=== PATIENT | male | born 1955 | race African-American/Black ===

== ENCOUNTER 2017-04-15 15:12 | Inpatient (IN) ==
[2017-04-15 15:29] LABS: MANUAL DIFF NEEDED? NO
[2017-04-15 15:34] LABS: BASO% 0.2 % (0.0-0.8); EOS# 0.11 X1000 (0.0-0.7); EOS% 1.3 % (0.0-10.0); HEMATOCRIT 41.8 % (42.0-52.0); HEMOGLOBIN 13.8 g/dL (14.0-18.0); LYMPH# 2.38 X1000 (1.2-3.4); MCH 28.9 PG (27-31); MCV 87.6 FL (81-99); MONO# 0.55 X1000 (0.11-0.59); MONO% 6.7 % (1.7-9.3); MPV 9.6 FL (7.4-10.4); NEUT% 62.8 % (42.2-75.2); PLT 258 X1000 (130-400); RBC 4.77 XMIL (4.7-6.1)
[2017-04-15 15:53] LABS: AGAP 10; ALBUMIN 3.6 g/dL (3.5-5.0); ALKALINE PHOSPHATASE 90 U/L (32-122); BUN 17 mg/dL (8-22); CALCIUM 8.8 mg/dL (8.8-10.2); CHLORIDE 106 mmol/L (98-107); COSMO 290; GOT 30 U/L (10-34); GPT 27 U/L (10-44); POTASSIUM 4.3 mmol/L (3.5-5.1); SODIUM 145 mmol/L (136-145); TCO2 29 mmol/L (25-35); TOTAL BILIRUBIN 0.17 mg/dL (0.20-1.00); TOTAL PROTEIN 7.1 g/dL (6.3-8.3)
[2017-04-15 16:20] LABS: INR 1.03; PROTIME 10.8 Seconds (9.2-11.7); PTT 27.5 Seconds (22.0-36.0)
--- NOTE | 2017-04-15 18:23 | PROVIDER DOCUMENTATION ---
HPI-General Adult - General Chief Complaint: Edema Stated Complaint: RT FOOT SWOLLEN,DIABETIC Time Seen by Provider: 04/15/17 18:16 Source: patient Allergies/Adverse Reactions: Patient Allergies Allergy/AdvReac Type Severity Reaction Status Date / Time lisinopril Allergy Severe ANAPHYLAXIS Verified 04/15/17 20:33 Home Medications: Home Medication List Medication Instructions Recorded Confirmed Last Taken Type Aspirin 81 mg PO DAILY 10/12/15 04/15/17 04/14/17 History Brinzolamide/Brimonidine Tart 1 drop OP TID 10/12/15 10/12/15 10/11/15 History [Simbrinza 1%-0.2% Eye Drops] Amlodipine [Norvasc] 10 mg PO DAILY #90 tablet 10/17/15 04/15/17 04/14/17 Rx - History of Present Illness -Gen Adult Nature of Presenting Problems: 61 y/o BM presents to the ED with c/o RLE swelling x 6 days, tooth infection x 2 years, out of BP medication x 7 days. States leg pain is through entire RLE, starting in foot/ankle and now is affecting entire RLE. States sometimes intermittent swelling sometimes, but usually will go down. Denies hx of CHF, but has had hx of HI x 4-5 years ago with one stent in place- was seeing Dr. Lewis, but has not seen her in 3 years. Pt states hx of DM2, but does not take medications for it at this time. States tooth infection in L upper jaw with intermittent drainage; reports Abx will keep it at bay for 6 months at a time, but is back today and actively draining. Out of norvasc; needs a refill. Review of Systems - Adult - REVIEW OF SYSTEMS - ADULT Constitutional: reports: no symptoms reported. denies: chills, fever Eyes: reports: no symptoms reported. denies: blurred vision, double vision Ears, Nose, Mouth & Throat: reports: see HPI, mouth/dental pain. denies: ear pain, nose pain Cardiovascular: reports: no symptoms reported. denies: chest pain, palpitations Respiratory: reports: no symptoms reported. denies: cough, shortness of breath Gastrointestinal: reports: no symptoms reported. denies: nausea, vomiting Genitourinary: reports: no symptoms reported. denies: dysuria, frequency Musculoskeletal: reports: see HPI, other. denies: joint pain, joint swelling Integumentary: reports: no symptoms reported, rash. denies: nail changes Neurological: reports: no symptoms reported. denies: numbness, paresthesia Psychiatric: reports: no symptoms reported Endocrine: reports: no symptoms reported. denies: cold intolerance, heat intolerance Hematologic/Lymphatic: reports: see HPI, blood clots. denies: easy bruising, prolonged bleeding Allergic/Immunologic: reports: no symptoms reported All Other Systems: Reviewed and Negative Past History - Adult - PAST MEDICAL HISTORY-ADULT Review of Records: reports: Nursing Assessment Review, Medications Reviewed Cardiovascular: reports: CAD, HTN, hyperlipidemia, HI Endocrine/Immune: reports: Diabetes, thyroid disorder - PRIOR SURGERIES/PROCEDURES Surgical/Procedure History: reports: cardiac stent (2012), hernia repair, orthopedic (extremity) - SOCIAL HISTORY Smoking: cigarettes, less than 1 pack/day Provider spent 3-5 mins advising pt. on dangers of tobacco.: Discussed manners to quit use, and f/u contacts for add'l counseling. Alcohol Use Frequency: twice a week Number of drinks per typical drinking period:: 3-4 drinks Physical Exam-General - PHYSICAL EXAM-ADULT Initial Vital Signs Reviewed: Yes - CONSTITUTIONAL General Appearance: alert, mild distress, obese - EYES Eyes: pink conjunctivae - HEAD, EARS, NOSE, MOUTH & THROAT HENMT: normocephalic/atraumatic, dental decay (L upper jaw redness, no active drainage.) - NECK Neck: supple, normal inspection - RESPIRATORY Respiratory: lungs clear, normal breath sounds, no pleuratic chest pain. negative: crackles, rales, rhonchi, stridor, wheezing - CARDIOVASCULAR Cardiovascular: regular rate, rhythm. negative: bradycardia, tachycardia - MUSCULOSKELETAL Back Exam: normal inspection Extremity: normal gait, calf tenderness (RLE), pedal edema (RLE), swelling (RLE) , tenderness (RLE). negative: no pedal edema, no calf tenderness, abnormal NV exam, pulse deficit Peripheral Pulses: dorsalis-pedis (R): 1+ - SKIN Integumentary: normal color, normal turgor, erythema (RLE) - NEUROLOGIC Neurologic: negative: aphasia - PSYCHIATRIC Psych/Mental Status: normal mood/affect Progress - PLAN OF CARE/RESULTS Progress/Plan/Lab Results: Vital Signs - 8 hr 04/15/17 15:14 04/15/17 18:15 Temperature 99.0 F 98.0 F Pulse Rate 83 64 Respiratory Rate 18 18 Blood Pressure 156/82 157/90 O2 Sat by Pulse Oximetry 100 100 Laboratory Results - last 24 hr 04/15/17 04/15/17 04/15/17 15:19 15:19 15:19 WBC 8.21 RBC 4.77 Hgb 13.8 L Hct 41.8 L MCV 87.6 MCH 28.9 MCHC 33.0 RDW Std Deviation 15.0 H Plt Count 258 MPV 9.6 Immature Gran % (Auto) 0.0 Neut % (Auto) 62.8 Lymph % (Auto) 29.0 [place] % (Auto) 6.7 Eos % (Auto) 1.3 Baso % (Auto) 0.2 Immature Gran # (Auto) 0.00 Neut # (Auto) 5.15 Lymph # (Auto) 2.38 [place] # (Auto) 0.55 Eos # (Auto) 0.11 Baso # (Auto) 0.02 PT INR PTT (Actin FS) D-Dimer 16.24 H Sodium 145 Potassium 4.3 Chloride 106 Carbon Dioxide 29 Anion Gap 10 BUN 17 Creatinine 1.1 Estimated GFR/1.73 m2 > 60 BUN/Creatinine Ratio 15 Glucose 93 Calculated Osmolality 290 Calcium 8.8 Total Bilirubin 0.17 L AST 30 ALT 27 Alkaline Phosphatase 90 Total Protein 7.1 Albumin 3.6 Globulin 3.5 Albumin/Globulin Ratio 1.0 04/15/17 15:19 WBC RBC Hgb Hct MCV MCH MCHC RDW Std Deviation Plt Count MPV Immature Gran % (Auto) Neut % (Auto) Lymph % (Auto) [place] % (Auto) Eos % (Auto) Baso % (Auto) Immature Gran # (Auto) Neut # (Auto) Lymph # (Auto) [place] # (Auto) Eos # (Auto) Baso # (Auto) PT 10.8 INR 1.03 PTT (Actin FS) 27.5 D-Dimer Sodium Potassium Chloride Carbon Dioxide Anion Gap BUN Creatinine Estimated GFR/1.73 m2 BUN/Creatinine Ratio Glucose Calculated Osmolality Calcium Total Bilirubin AST ALT Alkaline Phosphatase Total Protein Albumin Globulin Albumin/Globulin Ratio Orders Category Date Time Status CBC WITH DIFF [HEME] Stat Lab 04/15/17 15:19 Completed COMPREHENSIVE METABOLIC PANEL [CHEM] Stat Lab 04/15/17 15:19 Completed D-DIMER [CHEM] Stat Lab 04/15/17 15:19 Completed PROTIME WITH INR [COAG] Stat Lab 04/15/17 15:19 Completed PTT [COAG] Stat Lab 04/15/17 15:19 Completed Venous U/S Right Leg Stat Ther 04/15/17 17:32 Ordered Discussed pt with Dr. Young; he agreed with admission. Result Diagrams: 04/15/17 15:19 04/15/17 15:19 - CT/MRI 1 CT Study: Angiogram (pulmonary) Impression: See EMR Report (1. Right upper lobe pulmonary embolus. 2. Peripheral wedge-shaped nodular density measuring up to 12 mm inferiorly in the right upper lobe. 3. There is evidence of a prior granulomatous infection. 4. A preliminary report was given to Dr. Young in the emergency room at 8:00 pm. -per Dr. Liang) - ULTRASOUND (By Radiology) 1 US Study: Lower Ext (R) Impression: Discussed w/Radiology (Extensive R occlusive DVT in CFV, FV, Popliteal, peroneal, PTV, soleoal, and gastroc involvement, per US remediation technician) - CONSULTS/PCP/HOSPITALIST Notification #1 *Consult/PCP/Hospitalist*: Dr. Garcia Time Discussed: 19:17 Reason/Comments: extensive RLE DVT, elevated Ddimer Consult Disposition: Admit (get CT angiogram) Departure - Departure Date of Disposition Decision: 04/15/17 Time of Disposition Decision: 19:15 DIAGNOSIS: DVT (deep venous thrombosis) Qualifiers: DVT location: lower extremity Affected thrombotic vein of extremity: other lower extremity vein Chronicity: acute Laterality: right Qualified Code(s): I82.491 - Acute embolism and thrombosis of other specified deep vein of right lower extremity Diabetes Qualifiers: Diabetes mellitus type: type 2 Diabetes mellitus complication status: with unspecified complications Diabetes mellitus skilled nursing insulin use: unspecified skilled nursing insulin use status Qualified Code(s): E11.8 - Type 2 diabetes mellitus with unspecified complications Hypertension Qualifiers: Hypertension type: essential hypertension Qualified Code(s): I10 - Essential ( primary) hypertension Disposition: ADMITTED INPATIENT 09 Certified Medical Emergency: Emergent Condition: Stable - Critical Care Note This patient required my direct & personal management of CC.: No Attestation - Physician/ JUSTIN Attestation Patient care was provided by Advanced Practice Provider:: Yes Advanced Practice Provider:: Aria Felix Advanced Practice Provider documentation review:: The Mid-level provider documentation, treatment plan and medical decision making was reviewed by the physician who agrees with all treatment and medical decision making by the MLP.
[2017-04-15] MEDS ORDERED: LOVENOX 1 MG/KG SUBQ ONE (19:13)
--- NOTE | 2017-04-15 20:02 | Diag Imaging Result Doc PS360 ---
EXAM: ANGIOGRAM/PULMONARY ARTERIES HISTORY: elevated Ddimer, DVT in RLE TECHNIQUE: Dose reduction protocol COMPARISON: 10/12/2015 FINDINGS: There is a filling defect within the posterior branch of the right upper lobe pulmonary artery. No thoracic aortic aneurysm or dissection. No cardiomegaly. No enlarged mediastinal or hilar lymph nodes. No pleural effusions. Small calcified left hilar lymph nodes with a calcified granuloma in the left lower lobe. Small peripheral nodular triangular-shaped density inferiorly in the right upper lobe. No other parenchymal abnormality. No bronchiectasis. IMPRESSION: 1.Right upper lobe pulmonary embolus 2.Peripheral wedge-shaped nodular density measuring up to 12 mm inferiorly in the right upper lobe 3.There is evidence of a prior granulomatous infection 4.A preliminary report was given to Dr. Young in the emergency room at 8:00 PM Electronically signed by Shine Liang 04/15/2017 7:59 PM
[2017-04-15] MEDS ORDERED: ZOFRAN IV PRN (21:05)
[2017-04-15] MEDS: TYLENOL PO PRN (23:01)
[2017-04-15] MEDS: LOVENOX SUBQ SCH (23:01)
--- NOTE | 2017-04-16 05:32 | HISTORY AND PHYSICAL ---
PRIMARY CARE PHYSICIAN: None. CHIEF COMPLAINT: Right lower extremity swelling x6 weeks or so. HISTORY OF PRESENTING ILLNESS: This is a 61-year-old male with a history of pulmonary embolism, diabetes mellitus type 2, previous right DVT, and hypertension who had presented to the emergency department with a 6 week history of right lower extremity swelling and pain. The patient apparently had been on anticoagulation with Coumadin in the past. However, he lost his primary care physician and subsequently he has not taken medicines for quite a long while. He was evaluated the ER. He had an ultrasound done which was consistent with an extensive right lower extremity DVT. Also, he had a CAT scan done which did show a pulmonary embolism. Due to these presenting symptoms and findings, he will need hospitalization for further management. At the time of my examination, he had denied any headache, visual changes, fevers, chills, chest pain, shortness of breath, hemoptysis, or weight changes but complained of right lower extremity pain. PAST MEDICAL HISTORY: Includes pulmonary embolism, diabetes mellitus type 2, right DVT, hypothyroidism, hypertension, NE, coronary artery disease, left eye blindness. PAST SURGICAL HISTORY: Coronary stent, hernia repair, left foot surgery. ALLERGIES: Lisinopril. CURRENT MEDICATIONS: As listed in the MAR. SOCIAL HISTORY: A 40 pack year history of smoking. Admits to social alcohol use. Denies any illicit drug use. FAMILY HISTORY: No history of coronary artery disease. REVIEW OF SYSTEMS: Twelve point review of systems listed as in the HPI. Other systems negative. PHYSICAL EXAMINATION: GENERAL: Cooperative, friendly male. He is resting comfortably now. VITAL SIGNS: Temperature 99 degrees, pulse 83, respirations 18, blood pressure 156/82, saturating 100% on room air. HEENT: Atraumatic, normocephalic. Extraocular movements intact. PERRLA. NECK: Supple. CHEST: Clear to auscultation. CARDIOVASCULAR: Regular rate and rhythm. ABDOMEN: Soft. Positive bowel sounds. EXTREMITIES: Right lower extremity edema. NEUROLOGIC: He is awake, alert, oriented x3. : No bladder distention. SKIN: Warm and good turgor. LABORATORIES AND STUDIES: WBCs 8.21, hemoglobin 13.8, hematocrit 41.8, platelets 258,000. Sodium 143, potassium 4.3, chloride 106, CO2 is 29, BUN is 17, creatinine is 1.1, glucose is 93. D-dimer was 16.24. ASSESSMENT: A 61-year-old male with a previous history of pulmonary embolism and a right lower extremity deep venous thrombosis, hypertension, and diabetes mellitus type 2 who had presented to the emergency department with a 6 week history of worsening right lower extremity swelling and pain. He was evaluated in the emergency room, and he had an ultrasound done which was consistent with extensive deep venous thrombosis of the right lower extremity. Also, he had a CAT scan done which did show pulmonary embolism. Due to these findings, he will need hospitalization for further management. 1. Acute right lower extremity deep venous thrombosis. 2. Acute pulmonary embolism. 3. Diabetes mellitus type 2. 4. Hypertension. PLAN: 1. We will admit patient to medical floor with telemetry. The patient is not hypoxic and does not complain of any respiratory problems. It will be appropriate for patient to go to the medical floor. 2. We will start patient on Lovenox 1 mg/kg subcutaneous q.12 hours. 3. Patient will be discussed options regarding if he wants to go on Xarelto versus continue on Coumadin. 4. We will monitor blood glucose and put patient on sliding scale insulin regimen. 5. We will monitor blood pressure and resume antihypertensive agent. 6. Patient is going to be on heparin so he has appropriate coverage for prophylaxis and also for treatment. 7. We will continue to follow and reassess. cc: Femi Garcia MD
[2017-04-16 05:40] LABS: MANUAL DIFF NEEDED? NO
[2017-04-16 06:10] LABS: BASO% 0.3 % (0.0-0.8); EOS# 0.19 X1000 (0.0-0.7); EOS% 2.1 % (0.0-10.0); HEMATOCRIT 38.9 % (42.0-52.0); HEMOGLOBIN 12.9 g/dL (14.0-18.0); IMM GRAN# 0.02 X1000 (0.0-0.04); IMM GRAN% 0.2 % (0.0-0.5); LYMPH# 3.17 X1000 (1.2-3.4); LYMPH% 35.8 % (20.5-51.1); MCH 29.3 PG (27-31); MCHC 33.2 g/dL (33-37); MCV 88.2 FL (81-99); MONO# 0.69 X1000 (0.11-0.59); MONO% 7.8 % (1.7-9.3); NEUT% 53.8 % (42.2-75.2); PLT 230 X1000 (130-400); RBC 4.41 XMIL (4.7-6.1)
[2017-04-16 06:13] LABS: AGAP 10; BUN 17 mg/dL (8-22); CALCIUM 8.3 mg/dL (8.8-10.2); CHLORIDE 106 mmol/L (98-107); COSMO 294; SODIUM 146 mmol/L (136-145); TCO2 30 mmol/L (25-35)
[2017-04-16] MEDS: TYLENOL PO PRN ×2 (06:43→22:13)
[2017-04-16] MEDS: HUMULIN R SUBQ SCH ×4 (06:44→22:13)
[2017-04-16] MEDS: ASPIRIN PO SCH (10:05)
[2017-04-16] MEDS: LOVENOX SUBQ SCH ×2 (10:05→22:13)
[2017-04-16] MEDS: NORVASC PO SCH (10:05)
--- NOTE | 2017-04-16 11:58 | Extremity Venous Study ---
PROCEDURE NAME: Venous U/S Right Leg - 04/15/2017 REQUESTING PHYSICIAN: Dr. Ackerman in the Emergency Department. SHEET METAL LAYOUT WORKER: Maritza. INDICATION: Edema in the right lower extremity with elevated D-dimer. PROCEDURE: Right lower extremity venous duplex and color flow imaging. EQUIPMENT: [employer] E9 ultrasound system with a 9 LD transducer. FINDINGS: images of the right lower extremity venous system with comparison shot of the left common femoral vein were obtained in both sagittal and transverse planes. Doppler was used to evaluate veins for spontaneity, phasicity, respiratory excursion, and digital augmentation. RESULTS: Extensive DVT noted on the right side, extending from the common femoral vein, the femoral vein, the popliteal vein, the gastrocnemius vein, the soleal vein, the posterior tibial vein, and the peroneal vein. There is also a superficial venous thrombosis noted in the greater saphenous vein on the right side. INTERPRETATION: Extensive deep vein thrombosis on the right side, as noted above. There is also a superficial venous thrombosis of the greater saphenous vein. This was reported to Dr. Young in the Emergency Department at 7 p.m., per the photographic technician's note. cc: Fantasma Floyd MD
[2017-04-16] MEDS: PATIENT'S OWN MED OPH SCH ×2 (11:59→18:45)
--- NOTE | 2017-04-16 16:00 | PROGRESS NOTE ---
DATE: 04/16/2017 SUBJECTIVE: Patient admitted yesterday evening on the . A 61-year-old presented with right lower extremity swelling for 6 weeks or so. Has a history of pulmonary embolism, diabetes mellitus type 2, previous right DVT, hypertension, presented to the emergency department. 6-week history of right lower extremity swelling and pain. The patient apparently has been on anticoagulation with Coumadin in the past; however, he lost his primary care physician. Subsequently, he has not taken medications for quite a long while. He was evaluated in the emergency room. Ultrasound was consistent with extensive right lower extremity DVT. Also had CAT scan, CT angiogram which showed pulmonary embolism. Due to these presenting symptoms and findings, he was put in the hospital. He says he feels better today, can tell his right leg is less swollen. No pleuritic discomfort. OBJECTIVE: Vital signs: Temperature 98.7 degrees, pulse 66, respirations 20, blood pressure 157/96. CVP was less than 6 cm. Lungs: Clear. I do not hear any pleural rubs, anterior, posterior or laterally. Abdomen: Soft. Skin: Warm and dry. Extremities: Right ankle and foot with trace edema and slightly larger diameter than the left. : Urine output was above 1400 mL. LABORATORY: Today white count 8860, hematocrit 38, platelet count 230,000. Sodium 146, potassium 4, chloride 106, BUN 17, creatinine 1.1. ASSESSMENT AND PLAN: 1. Right lower extremity deep venous thrombosis. Right upper lobe pulmonary embolus. Peripheral wedge-shaped nodular density measuring about 12 mm inferior in the right upper lobe. No pleuritic pain. Breathing comfortably. Hemodynamically stable. No sign of heart right heart strain. He is currently anticoagulated and we will need to convert him to a p.o. anticoagulant and suspect that we could go back on the Coumadin, but he needs to have follow up with that. He is right now on Lovenox 140 mg subcutaneous q.12 hours. We will see if he is eligible for Xarelto. Otherwise, we will go ahead and start him on Coumadin to get that therapeutic. I would like his international normalized ratio to be 2 or above. 2. Diabetes mellitus type 2. Follow sugars. Appear to be well controlled. 118, 110 were his last 2 numbers. 3. Hypertension. 4. Obesity. 5. He has history of coronary artery disease. He has had coronary stent before. 6. He has left eye blindness. 7. History of myocardial infarction. 8. He has history of primary hypothyroidism. Appears to be euthyroid. I do think it would be worthwhile to check his cholesterol and check his T4 and TSH as well as a B12 and folate while he is here. cc: Sridhar Ballesteros MD
[2017-04-16] MEDS: COUMADIN PO SCH (22:13)
[2017-04-17] MEDS: HUMULIN R SUBQ SCH ×4 (06:00→21:00)
[2017-04-17] MEDS: TYLENOL PO PRN ×3 (06:08→22:04)
[2017-04-17 07:43] LABS: FREE T4 0.84 ng/dL (0.93-1.70)
[2017-04-17] MEDS ORDERED: PNEUMOVAX 23 IM ONE (09:00)
[2017-04-17] MEDS: ASPIRIN PO SCH (09:04)
[2017-04-17] MEDS: LOVENOX SUBQ SCH ×2 (09:04→21:57)
[2017-04-17] MEDS: NICODERM PATCH TD SCH (09:04)
[2017-04-17] MEDS: NORVASC PO SCH (09:04)
--- NOTE | 2017-04-17 12:28 | PROGRESS NOTE ---
DATE: 04/17/2017 SUBJECTIVE: He is breathing comfortably. Feels good. His leg feels like it is less swollen. Had a good night. Bowels are moving. He is eating well. OBJECTIVE: Vital Signs: Temperature 98.6 degrees, pulse 65, respirations 20, blood pressure 134/86. Lungs: Clear in all lung vann. Cardiovascular: Regular rhythm and rate without murmur or S3. Urine output was 3 L. LAB: Reviewed from yesterday, hematocrit stable at 38. Blood sugars 118, 110, 105. His prothrombin time was 10.8. D-dimer was 16.24 on the . ASSESSMENT AND PLAN: 1. Deep venous thrombosis and pulmonary thromboemboli. He is on Lovenox. He has right upper lobe pulmonary embolus. We will start him on Coumadin. He needs to find primary care, hoping to let him go home on Saturday when prothrombin time is therapeutic. 2. Diabetes mellitus type 2. Sugars well controlled. 3. Hypertension. 4. Obesity. 5. History of coronary artery disease. 6. Left eye blindness. 7. History of myocardial infarction. 8. History of primary hypothyroidism. LABORATORIES: Review of his labs, his thyroid T4 was a little low with an elevated TSH, so probably put him on 50 mcg of Synthroid. cc: Sridhar Ballesteros MD
[2017-04-17] MEDS: NON-FORMULARY BULK MED OPH SCH ×3 (16:09→22:20)
[2017-04-17] MEDS: COUMADIN PO SCH (21:56)
[2017-04-17] MEDS: XALATAN 0.005% OPH SOLN BOTH EYES SCH (22:45)
[2017-04-18] MEDS: SYNTHROID PO SCH (06:44)
[2017-04-18] MEDS: HUMULIN R SUBQ SCH ×4 (06:45→20:42)
[2017-04-18] MEDS: NON-FORMULARY BULK MED OPH SCH ×3 (06:46→22:00)
[2017-04-18] MEDS: LOVENOX SUBQ SCH ×2 (08:55→20:41)
[2017-04-18] MEDS: NICODERM PATCH TD SCH (08:56)
[2017-04-18] MEDS: NORVASC PO SCH (08:56)
[2017-04-18] MEDS: ASPIRIN PO SCH (08:56)
--- NOTE | 2017-04-18 10:25 | PROGRESS NOTE ---
DATE: 04/18/2017 SUBJECTIVE: He is requesting some antibiotic. He has a tooth that is abscessed in the left upper molar. He is asking if he can move around a little bit. Breathing is comfortable. He was instructed not to be on his ibuprofen and take something else since he is on Coumadin. We will let him try some tramadol. OBJECTIVE: Temperature 97.9 degrees, pulse 62, respirations 18, blood pressure 115/77. Pupils are equal and round. Lungs are clear in all lung vann. Cardiovascular: Regular rhythm and rate without murmur or S3. Abdomen soft. Skin is warm and dry. Urine output 5.5 L. LABORATORY DATA: CBC reviewed from 04/16/2017. Chemistry: Blood sugar is 131, 52. ProTime was 10.8 from 04/15/2017, so we want check another one today and tomorrow. ASSESSMENT AND PLAN: 1. Deep venous thrombosis/pulmonary thromboemboli. He is Lovenox. He is going to be discharged on Coumadin, check ProTime today and tomorrow. Hopefully, he can go home tomorrow. 2. Diabetes mellitus, type 2. Sugar is under control. 3. Hypertension. 4. Obesity. 5. Coronary artery disease. 6. Left eye blindness. 7. History of myocardial infarction. 8. Primary hypothyroidism. 9. Abscess tooth. ALLERGIES: Not allergic to anything. PLAN: We will start him on some tramadol for the pain as needed since he is on Coumadin. cc: Sridhar Ballesteros MD
[2017-04-18 10:30] LABS: INR 1.08; PROTIME 11.4 Seconds (9.2-11.7)
[2017-04-18] MEDS: AUGMENTIN PO SCH ×2 (10:37→20:41)
[2017-04-18] MEDS ORDERED: MILK OF MAGNESIA PO PRN (14:36)
[2017-04-18] MEDS: ULTRAM PO PRN ×2 (14:46→23:00)
[2017-04-18] MEDS: COUMADIN PO SCH (20:41)
[2017-04-18] MEDS ORDERED: ULTRAM PO SCH (21:00)
[2017-04-18] MEDS: XALATAN 0.005% OPH SOLN BOTH EYES SCH (22:00)
[2017-04-18] MEDS: PERIDEX MT SCH (23:01)
[2017-04-19] MEDS: SYNTHROID PO SCH (06:50)
[2017-04-19] MEDS: HUMULIN R SUBQ SCH ×2 (06:52→11:37)
[2017-04-19] MEDS: NON-FORMULARY BULK MED OPH SCH (06:53)
[2017-04-19] MEDS: ASPIRIN PO SCH (08:25)
[2017-04-19] MEDS: PERIDEX MT SCH (08:25)
[2017-04-19] MEDS: NICODERM PATCH TD SCH (08:25)
[2017-04-19] MEDS: LOVENOX SUBQ SCH ×2 (08:25→10:31)
[2017-04-19] MEDS: NORVASC PO SCH (08:25)
[2017-04-19] MEDS: AUGMENTIN PO SCH (08:25)
[2017-04-19 10:57] LABS: INR 1.21; PROTIME 12.9 Seconds (9.2-11.7)
[2017-04-19 11:14] VITALS: BP 123/71
--- NOTE | 2017-04-19 14:08 | DISCHARGE SUMMARY ---
ADMISSION DATE: 04/15/2017 DISCHARGE DATE: CHIEF COMPLAINT: Is a 61-year-old with history of pulmonary embolism. He came in with right lower extremity swelling for about 6 weeks. PAST MEDICAL HISTORY: Diabetes mellitus type 2, previous right DVT, hypertension. HOSPITAL COURSE: Came to the emergency room after 6-week history of right lower extremity swelling and pain. The patient apparently been on anticoagulant with Coumadin in the past. However he took him off of this. Ultrasound was done consistent with extensive right lower extremity DVT. CT angiogram was done and found pulmonary embolism as well so he was put on Lovenox, after debate on what to go on he wants to go back on the Coumadin. Started the Coumadin back and clinically did better, breathing improved. His leg got softer, was eating well. Sugars well controlled and so felt he could go home on 04/19/2016. DISCHARGE MEDICATIONS: He is going to be on Coumadin 5 mg at bedtime, he gets the Ultram 50 mg t.i.d. p.r.n., he has a nicotine patch 14 mg a day, Synthroid 50 mcg a day, he is on Xalatan eye drops 0.005% I think uses in both eyes daily, aspirin 81 mg a day, Augmentin I started because he does have a abscess tooth so I will continue that for another 7 days with some refills and Norvasc 10 mg a day. FOLLOWUP: He is to follow up his primary care. Important he understands that he is supposed to get his pro time checked once a week for 4 weeks and then once a month after that. cc: Sridhar Ballesteros MD
== END 2017-04-19 14:45 | disposition home or self-care (01) ==
LOC: ED 15:12 → SUATTDRO 20:41 → 4N 20:41
PROVIDERS: ATTEND Emergency Medicine